=== PATIENT | male | born 1970 | race Two or more races ===

== ENCOUNTER 2020-08-18 05:34 | Day surgery (SDC) | payer OTHER ==
[~2020-08-18 05:34] MED LIST: [UNRECOGNIZED DRUG - OTHER]
== END 2020-08-18 14:50 | disposition home or self-care (01) ==
LOC: CIR.AMB 05:34
PROVIDERS: ATTEND Specialist
DX: D17.0 Benign lipomatous neoplasm of skin and subcutaneous tissue of head, face and neck (principal); Z20.828 Contact with and (suspected) exposure to other viral communicable diseases